=== PATIENT | female | born 1975 | race Caucasian/White ===

== ENCOUNTER 2022-06-16 09:25 | Emergency (ER) | payer MEDICARE, OTHER ==
[~2022-06-16] VITALS: Ht 149.9 cm; Wt 117.9 kg
[2022-06-16 09:35] VITALS: BP_SYST 160
--- NOTE | 2022-06-16 10:30 | NUR ---
ER at bedside examining patient.
[2022-06-16] MEDS ORDERED: NACL 0.9% 1,000 ML IV ONE (10:45)
[2022-06-16] MEDS ORDERED: ONDANSETRON 4 MG ODT TAB PO ONE (10:45)
[2022-06-16 11:13] LABS: ANION GAP 11 (5-15); CHLORIDE 97 mmol/L (98-107); CREATININE 1.44 mg/dL (0.55-1.30); GLUCOSE 366 mg/dL (70-99); UREA NITROGEN, BLOOD 31 mg/dL (8-21)
[2022-06-16 11:19] LABS: BASOPHILS # (AUTO) 0.1 K/uL (0.0-0.2); BASOPHILS % (AUTO) 1.2 % (0.0-2.0); EOSINOPHILS # (AUTO) 0.3 K/uL (0.0-0.4); EOSINOPHILS % (AUTO) 2.3 % (0.0-4.0); HEMATOCRIT 43.2 % (36-48); HEMOGLOBIN 14.1 g/dL (12.0-16.0); LYMPHOCYTES # (AUTO) 1.5 K/uL (1.0-5.5); LYMPHOCYTES % (AUTO) 12.8 % (20.5-51.5); MEAN CORPUSCULAR HEMOGLOBIN 28 pg (27-31); MEAN CORPUSCULAR HGB CONC 33 % (32-36); MEAN CORPUSCULAR VOLUME 85 fL (79.0-98.0); MONOCYTES # (AUTO) 0.5 K/uL (0.0-1.0); MONOCYTES % (AUTO) 4.8 % (1.7-9.3); NEUTROPHILS % (AUTO) 78.9 % (40.0-70.0); PLATELET COUNT (AUTO) 347 K/uL (130-430); RED BLOOD CELL COUNT(AUTO) 5.08 MIL/uL (4.2-6.2); RED CELL DISTRIBUTION WIDTH 16.5 % (9.0-15.0); WHITE BLOOD COUNT (AUTO) 11.4 K/uL (4.8-10.8)
[2022-06-16 11:21] LABS: ALANINE AMINOTRANSFERASE 33 U/L (12-78); ALBUMIN 3.6 g/dL (3.4-4.8); ASPARTATE AMINOTRANSFERASE 27 U/L (10-37); LIPASE 228 U/L (73-393); TOTAL BILIRUBIN 0.3 mg/dL (0.0-1.0)
[2022-06-16 11:32] LABS: GFR AFRICAN AMERICAN 50 mL/min (>90)
--- NOTE | 2022-06-16 11:40 | NUR ---
Pt received in [facility].
[2022-06-16] MEDS ORDERED: INSULIN REGULAR, HUMAN 10 UNITS/0.1 ML, 3 ML VIAL SUBCUT ONE (11:45)
--- NOTE | 2022-06-16 11:45 | NUR ---
47-year-old female with history of diabetes, hypertension, hypothyroidism, presents with generalized weakness, nausea and vomiting. Patient states symptoms started this morning, she has vomited about 6 times today. States that she is having diarrhea that just started prior to arrival as well. Patient states that she is not on insulin, however she forgets to take her diabetic medications frequently. Patient denies any recent fevers or illnesses. No dysuria. Denies chest pain or shortness of breath.
[2022-06-16 12:02] LABS: ACETONE, SERUM NEGATIVE (NEGATIVE)
[2022-06-16 12:16] LABS: BILIRUBIN,URINE NEGATIVE (NEGATIVE); CLARITY/URINE CLEAR (CLEAR); COLOR,URINE YELLOW (YELLOW); GLUCOSE,URINE 3+ (NEGATIVE); KETONES,URINE TRACE (NEGATIVE); LEUKOCYTE ESTERASE ,URINE NEGATIVE (NEGATIVE); NITRITE, URINE NEGATIVE (NEGATIVE); PROTEIN URINE 1+ (NEGATIVE); UROBILINOGEN,URINE 0.2 (0.2-1.0)
--- NOTE | 2022-06-16 12:19 | NUR ---
Patient transported to radiology via gurney, accompanied by [facility].
[2022-06-16 12:31] LABS: BLOOD, URINE TRACE (NEGATIVE)
[2022-06-16 12:39] LABS: BACTERIA,URINE FEW /HPF (None Seen); WBC,URINE 0-3 /HPF (0-3)
[2022-06-16] MEDS ORDERED: MAGNESIUM SULFATE 1 GM/2 ML VIAL IVP ONE (13:00)
--- NOTE | 2022-06-16 13:40 | NUR ---
# 20 gauge angiocath placed to left hand. Use of asceptic technique. Opsite placed over site. Blood return noted. Blood for lab drawn from site. Flushed with 10 cc of normal saline. No evidence of infiltration noted. Patient tolerated well.
--- NOTE | 2022-06-16 13:50 | NUR ---
Medicated per MD orders. IVF infusing with no s/s of infiltration at this time. Will cont to monitor
[2022-06-16] MEDS ORDERED: MAGNESIUM SULFATE 1 GM/2 ML VIAL ONE (14:04)
--- NOTE | 2022-06-16 15:59 | NUR ---
Pt is restng on lateral left side, alert oriented, pt complains of dizziness. Pt assisted to restroom, ambulates with steady gait and hands out for caution.
[2022-06-16] MEDS ORDERED: MECLIZINE HCL 25 MG TABLET (ANITVERT) PO ONE (16:00)
[2022-06-16] MEDS ORDERED: ONDA-8 TL (16:28)
--- NOTE | 2022-06-16 17:48 | NUR ---
Patient given written and verbal discharge instructions and verbalizes understanding. ER MD discussed with patient the results and treatment provided. Patient in stable condition. ID arm band removed. Patient educated on pain management and to follow up with PMD. Opportunity for questions provided and answered. Medication side effect fact sheet provided.
== END 2022-06-16 16:35 | disposition home or self-care (01) ==
LOC: SED 09:25
DX: R53.1 Weakness (principal); R10.9 Unspecified abdominal pain; R11.2 Nausea with vomiting, unspecified; R19.7 Diarrhea, unspecified; E11.65 Type 2 diabetes mellitus with hyperglycemia; R73.9 Hyperglycemia, unspecified; I10 Essential (primary) hypertension; Z79.899 Other long term (current) drug therapy
CPT/HCPCS: 99285; 74176; 96374; 71045; 96361; 80053; 81000; 82009; 82962; 83880; 83690; 85025; 84484; 36415; 93005; 76376; 81025; 96372; J8597; Q0162; J1815; J3475; J7030